=== PATIENT | female | born 1955 | race Caucasian/White ===

== ENCOUNTER → 2018-03-13 | Outpatient (CLI) | payer OTHER ==
--- NOTE | 2018-03-13 18:18 | BD ---
EXAMINATION TYPE: Axial Bone Density DATE OF EXAM: 03/13/2018 COMPARISON: NONE CLINICAL HISTORY: 63 YR OLD FEMALE....ICD-10 CODE: M85.80 OSTEOPENIA Height: 63.5 Weight: 150 FRAX RISK QUESTIONS: NOTHING TO NOTE HERE RISK FACTORS HISTORY OF: RT FEMUR AT AGE 12 FRACTURE Active: YES Postmenopausal woman: YES AT 52 YRS OLD MEDICATIONS: Prednisone or other steroids: ON AND OFF IN PAST Additional Medications: STATIN FOR CHOLESTEROL Additional History: NOTHING TO NOTE HERE EXAM MEASUREMENTS: Bone mineral densitometry was performed using the [facility]. Bone mineral density as measured about the Lumbar spine is: ----- L1-L4(G/cm2): 1.014 T Score Values are as follows: ----- L1: -2.2 ----- L2: -1.6 ----- L3: -1.3 ----- L4: -0.7 ----- L1-L4: -1.4 Bone mineral density FIRST BONE DENSITY AT [facility] Bone mineral density about the R hip (g/cm2): 0.862 Bone mineral density about the L hip (g/cm2): 0.901 T Score values are as follows: -----R Neck: -0.9 -----L Neck: -1.1 -----R Total: -1.2 -----L Total: -0.8 Bone mineral density FIRST BONE DENSTIY AT [facility] FRAX%s: THERE IS A 7.9% CHANCE FOR A MAJOR OSTEOPOROTIC FX AND 0.6% FOR HIP FX....PROBABILITY OF F X IN 10 YRS TIME IMPRESSION: Osteopenia (T Score between -2.5 and -1). There is slightly increased risk of fracture and the patient may be considered for treatment. Re-Screen 2-5 years. NOTE: T-SCORE=SD OF THE YOUNG ADULT MEAN.
== END | disposition home or self-care (01) ==
LOC: RADBDWWP 15:51
PROVIDERS: ATTEND Family Medicine
DX: M85.89 Other specified disorders of bone density and structure, multiple sites (principal)
CPT/HCPCS: 77080